=== PATIENT | male | born 1970 | race Caucasian/White ===

== ENCOUNTER 2024-04-13 20:39 | Emergency (ER) | payer MEDICARE, OTHER ==
[~2024-04-13] VITALS: Ht 170.2 cm; Wt 63.0 kg
[~2024-04-13 20:39] MED LIST: BUPR1TAB SL; CHLO25CA10 PO; FOLI1TAB27 PO; LEVO50TA67 PO; ONDA4TAB6 PO; PANT-47 PO; PHEN100C4 PO
[2024-04-13 21:18] LABS: BASOPHILS % (AUTO) 0.4 % (0-1); EOSINOPHILS % (AUTO) 0.3 % (0-6); HEMOGLOBIN 13.6 g/dl (14.0-17.9); LYMPHOCYTES # (AUTO) 0.5 X10'3 (1.1-4.8); LYMPHOCYTES % (AUTO) 6.7 % (21-51); MEAN CORPUSCULAR HEMOGLOBIN 30.3 PG (27.0-31.0); MEAN CORPUSCULAR VOLUME 89.1 FL (78-98); MEAN PLATELET VOLUME 8.7 FL (7.4-10.4); MONOCYTES # (AUTO) 0.4 X10'3 (0-0.9); NEUTROPHILS # (AUTO) 6.5 X10'3 (1.8-7.7); NEUTROPHILS % (AUTO) 87.6 % (42-75); PLATELET COUNT 198 X10'3 (140-440); RED BLOOD COUNT 4.49 X10'6 (4.70-6.10); WHITE BLOOD COUNT 7.4 X10'3 (4.5-11.0)
[2024-04-13 21:24] LABS: ALANINE AMINOTRANSFERASE 39 U/L (12-78); ALBUMIN 3.8 G/DL (3.4-5.0); ALBUMIN/GLOBULIN RATIO 1.5 (1.1-1.5); ALKALINE PHOSPHATASE 68 IU/L (46-116); ANION GAP 8 (8-16); ASPARTATE AMINO TRANSFERASE 26 U/L (10-37); BILIRUBIN,TOTAL 0.5 MG/DL (0.1-1.0); BLOOD UREA NITROGEN 25 MG/DL (7-18); BUN/CREATININE RATIO 25.5 (10.0-20.0); CALCIUM 10.4 MG/DL (8.5-10.1); CHLORIDE 102 MMOL/L (99-107); CREATININE 0.98 MG/DL (0.60-1.10); GLUCOSE 132 MG/DL (70-104); LIPASE 35 U/L (16-77); POTASSIUM 3.4 MMOL/L (3.5-5.1); SODIUM 142 MMOL/L (135-145); TOTAL CARBON DIOXIDE 32.2 MMOL/L (24-32); TOTAL PROTEIN 6.3 G/DL (6.4-8.2); eCRCL 76 ML/MIN; eGFR 79 ML/MIN
[2024-04-14 00:09] LABS: BILIRUBIN,URINE NEGATIVE (Neg); CLARITY,URINE SLIGHTLY CLOUDY (Clear); COLOR,URINE YELLOW (Yellow); GLUCOSE, URINE NEGATIVE (Neg); KETONES,URINE 40 mg/dl (Neg); LEUKOCYTE ESTERASE ,URINE NEGATIVE (Neg); NITRITES, URINE NEGATIVE (Neg); OCCULT BLOOD,URINE NEGATIVE (Neg); PROTEIN,URINE NEGATIVE (Neg); UROBILINOGEN,URINE 0.2 E.U/dL (0.2-1.0)
[2024-04-14 00:13] LABS: UA COLLECTION TYPE CLN CATCH MIDSTREAM
[2024-04-14 00:14] LABS: AMORPHOUS PHOSPHATES 2+; BACTERIA,URINE FEW /HPF (Neg); RBC,URINE NONE SEEN /HPF (0-2); SQUAMOUS EPITHELIAL CELL,UR FEW /LPF (FEW); WBC,URINE 0-4 /HPF (0-4)
[2024-04-14] MEDS: pantoprazole 40 MG vial IV ONE (01:34)
[2024-04-14] MEDS: normal saline 1000ml 1,000 ML IV ONE (01:34)
[2024-04-14] MEDS: ondansetron/PF 4mg/2ml inj IV ONE (01:35)
[2024-04-14] MEDS: famotidine/PF 10 mg/ml inj IV ONE (01:35)
[2024-04-14] MEDS: ketorolac trometh 15mg/ml vial 15 MG/ML ML IV ONE (01:35)
[2024-04-14] MEDS ORDERED: FAMO-129 PO (02:13)
[2024-04-14] MEDS ORDERED: ONDA-245 PO (02:13)
[2024-04-14] MEDS ORDERED: LIDO15SO9 PO (02:36)
[2024-04-14] MEDS: mag hydrox/Alum hydrox/simeth 30ml oral suspension PO ONE (02:49)
[2024-04-14] MEDS: LIDOcaine 2% Viscous 15ml cup MM ONE (02:49)
[2024-04-14 03:23] VITALS: BP 179/97; PULSE 75; RESP 18; TEMP 98.9; O2SAT 98
== END 2024-04-14 03:24 | disposition home or self-care (01) ==
LOC: ER 20:39
DX: K29.00 Acute gastritis without bleeding (principal); F10.10 Alcohol abuse, uncomplicated; Z79.899 Other long term (current) drug therapy; Y90.9 Presence of alcohol in blood, level not specified
CPT/HCPCS: 36415; 80053; 81001; 83690; 84484; 85025; 96361; 96374; 96375; 99284; J1885; J2405; J2470; J3490; J7030

== ENCOUNTER 2024-04-16 16:35 | Inpatient (IN) | payer OTHER ==
[~2024-04-16] VITALS: Ht 171.4 cm; Wt 62.0 kg
[~2024-04-16 16:35] MED LIST changes: +FAMO-129 PO; +LIDO15SO9 PO; +ONDA-245 PO
[2024-04-16 17:48] LABS: BASOPHILS % (AUTO) 0.3 % (0-1); EOSINOPHILS % (AUTO) 0.6 % (0-6); HEMATOCRIT 39.8 % (42.0-52.0); HEMOGLOBIN 13.5 g/dl (14.0-17.9); LYMPHOCYTES # (AUTO) 0.8 X10'3 (1.1-4.8); LYMPHOCYTES % (AUTO) 12.1 % (21-51); MEAN CORPUSCULAR HEMOGLOBIN 30.4 PG (27.0-31.0); MEAN CORPUSCULAR VOLUME 89.2 FL (78-98); MONOCYTES # (AUTO) 0.5 X10'3 (0-0.9); MONOCYTES % (AUTO) 8.1 % (2-12); NEUTROPHILS % (AUTO) 78.9 % (42-75); PLATELET COUNT 217 X10'3 (140-440); RED BLOOD COUNT 4.46 X10'6 (4.70-6.10); RED CELL DISTRIBUTION WIDTH 13.9 % (11.5-14.5); WHITE BLOOD COUNT 6.3 X10'3 (4.5-11.0)
[2024-04-16 18:08] LABS: ALANINE AMINOTRANSFERASE 42 U/L (12-78); ALBUMIN 3.6 G/DL (3.4-5.0); ALBUMIN/GLOBULIN RATIO 1.4 (1.1-1.5); ALKALINE PHOSPHATASE 64 IU/L (46-116); ANION GAP 8 (8-16); ASPARTATE AMINO TRANSFERASE 29 U/L (10-37); BILIRUBIN,TOTAL 0.4 MG/DL (0.1-1.0); BLOOD UREA NITROGEN 19 MG/DL (7-18); BUN/CREATININE RATIO 19.8 (10.0-20.0); CALCIUM 9.8 MG/DL (8.5-10.1); CHLORIDE 101 MMOL/L (99-107); CREATININE 0.96 MG/DL (0.60-1.10); GLUCOSE 117 MG/DL (70-104); LIPASE 42 U/L (16-77); POTASSIUM 3.5 MMOL/L (3.5-5.1); SODIUM 140 MMOL/L (135-145); TOTAL CARBON DIOXIDE 31.2 MMOL/L (24-32); TOTAL PROTEIN 6.2 G/DL (6.4-8.2); eCRCL 76 ML/MIN; eGFR 81 ML/MIN
[2024-04-16] MEDS ORDERED: LIDOcaine 2% Viscous 15ml cup MM ONE (19:25)
[2024-04-16] MEDS: mag hydrox/Alum hydrox/simeth 30ml oral suspension PO ONE (19:33)
[2024-04-16] MEDS: LIDOcaine 2% Viscous 15ml cup MM ONE (19:34)
[2024-04-16] MEDS: diatr meglu/diatrizoate 30ml oral sol.-(3 dose) bottle PO SCH (21:10)
[2024-04-16 21:28] LABS: BILIRUBIN,URINE NEGATIVE (Neg); CLARITY,URINE CLEAR (Clear); COLOR,URINE YELLOW (Yellow); GLUCOSE, URINE NEGATIVE (Neg); KETONES,URINE 15 mg/dl (Neg); LEUKOCYTE ESTERASE ,URINE NEGATIVE (Neg); NITRITES, URINE NEGATIVE (Neg); OCCULT BLOOD,URINE NEGATIVE (Neg); PROTEIN,URINE NEGATIVE (Neg); UA COLLECTION TYPE NON-SPECIFIED; UROBILINOGEN,URINE 0.2 E.U/dL (0.2-1.0)
[2024-04-16] MEDS ORDERED: OMEP20CA15 PO (22:48)
[2024-04-16] MEDS ORDERED: mag hydrox/Alum hydrox/simeth 30ml oral suspension PO PRN (23:00)
[2024-04-16] MEDS ORDERED: magnesium hydroxide 30ml (MOM) UD suspension PO PRN (23:00)
[2024-04-16] MEDS ORDERED: acetaminophen 325mg tablet PO PRN (23:00)
[2024-04-16] MEDS ORDERED: magnesium sulf-water 4G/100mL 100 ML IV PRN (23:00)
[2024-04-16] MEDS ORDERED: magnesium Cl slow-release 64mg tablet PO PRN (23:00)
[2024-04-16] MEDS ORDERED: magnesium sulf-water 2g/50mL 50 ML IV PRN (23:00)
[2024-04-16] MEDS ORDERED: potassium Cl 20 mEq SR tablet PO PRN ×2 (23:00)
[2024-04-16] MEDS ORDERED: ondansetron/PF 4mg/2ml inj IV PRN (23:00)
[2024-04-16 23:30] VITALS: BP 168/105; PULSE 78; RESP 19; TEMP 98.6; O2SAT 97
[2024-04-17] VITALS (19 sets, daily range): BP systolic 141–213; BP diastolic 89–115; PULSE 71–92; RESP 10–20; TEMP 97–98.3; O2SAT 95–99
[2024-04-17] MEDS: hydrALAZINE 20mg/ml inj. IV ONE (00:24)
[2024-04-17] MEDS: normal saline 1000ml 1,000 ML IV SCH (01:12)
[2024-04-17] MEDS: morphine 2 MG/ML inj. syringe IV ONE (01:12)
[2024-04-17] MEDS: diatr meglu/diatrizoate 30ml oral sol.-(3 dose) bottle PO SCH (01:49)
[2024-04-17 06:55] LABS: BASOPHILS % (AUTO) 0.3 % (0-1); EOSINOPHILS # (AUTO) 0.1 X10'3 (0-0.9); EOSINOPHILS % (AUTO) 1.7 % (0-6); HEMATOCRIT 33.3 % (42.0-52.0); HEMOGLOBIN 11.4 g/dl (14.0-17.9); LYMPHOCYTES # (AUTO) 0.7 X10'3 (1.1-4.8); LYMPHOCYTES % (AUTO) 14.9 % (21-51); MEAN CORPUSCULAR HEMOGLOBIN 30.7 PG (27.0-31.0); MEAN CORPUSCULAR HGB CONC 34.3 g/dL (33.0-36.5); MEAN CORPUSCULAR VOLUME 89.5 FL (78-98); MEAN PLATELET VOLUME 9.1 FL (7.4-10.4); MONOCYTES # (AUTO) 0.4 X10'3 (0-0.9); MONOCYTES % (AUTO) 8.8 % (2-12); NEUTROPHILS # (AUTO) 3.6 X10'3 (1.8-7.7); NEUTROPHILS % (AUTO) 74.3 % (42-75); PLATELET COUNT 158 X10'3 (140-440); RED BLOOD COUNT 3.72 X10'6 (4.70-6.10); RED CELL DISTRIBUTION WIDTH 14.2 % (11.5-14.5); WHITE BLOOD COUNT 4.8 X10'3 (4.5-11.0)
[2024-04-17 07:21] LABS: ALANINE AMINOTRANSFERASE 31 U/L (12-78); ALBUMIN 2.5 G/DL (3.4-5.0); ALBUMIN/GLOBULIN RATIO 1.1 (1.1-1.5); ALKALINE PHOSPHATASE 51 IU/L (46-116); ANION GAP 8 (8-16); ASPARTATE AMINO TRANSFERASE 25 U/L (10-37); BILIRUBIN,TOTAL 0.3 MG/DL (0.1-1.0); BLOOD UREA NITROGEN 16 MG/DL (7-18); BUN/CREATININE RATIO 24.2 (10.0-20.0); CALCIUM 8.2 MG/DL (8.5-10.1); CHLORIDE 105 MMOL/L (99-107); CREATININE 0.66 MG/DL (0.60-1.10); GLUCOSE 105 MG/DL (70-104); MAGNESIUM 2.1 MG/DL (1.5-2.4); POTASSIUM 3.3 MMOL/L (3.5-5.1); SODIUM 140 MMOL/L (135-145); TOTAL CARBON DIOXIDE 27.2 MMOL/L (24-32); TOTAL PROTEIN 4.8 G/DL (6.4-8.2); eCRCL 111 ML/MIN; eGFR > 90 ML/MIN
[2024-04-17] MEDS: heparin, porcine 5000 units/ml vial SQ SCH (07:56)
[2024-04-17] MEDS: docusate sod 100mg capsule PO SCH (07:58)
[2024-04-17] MEDS: K and/or MAG REPLACEMENT MC SCH (08:00)
[2024-04-17] MEDS: ketorolac trometh 15mg/ml vial 15 MG/ML ML IV ONE (12:20)
[2024-04-17] MEDS ORDERED: MIDAZolam 1 MG/ML 5ML VIAL ONE (14:08)
[2024-04-17] MEDS ORDERED: fentaNYL/PF 50MCG/1 ML 2ML syringe ONE (14:08)
[2024-04-17] MEDS ORDERED: LIDOcaine 2% Viscous 15ml cup ONE (14:08)
[2024-04-17] MEDS ORDERED: simethicone 40mg/0.6ml oral drops 30ml ONE (14:18)
[2024-04-17] MEDS ORDERED: buprenorphine/naloxone 2-0.5mg sublingual tablet SL SCH (16:32)
[2024-04-17] MEDS ORDERED: iohexol 300mg/ml 100ml inj. ONE ×2 (17:09→18:09)
[2024-04-17] MEDS ORDERED: TYPE IN GENERIC & BRAND NAME OF PATIENT MED STRENGTH & FORM SL SCH ×2 (17:13→17:14)
[2024-04-17] MEDS: buprenorphine/naloxone 8mg/2mg SL tablet SL SCH (17:31)
[2024-04-17] MEDS: pantoprazole 40MG/NS 100ML BAG 100 ML IV SCH (19:56)
[2024-04-17] MEDS: potassium Cl 40MEQ/1/2NS 520ml 520 ML IV PRN (21:37)
[2024-04-18] VITALS (23 sets, daily range): BP systolic 114–162; BP diastolic 64–87; PULSE 63–86; RESP 9–18; TEMP 97.5–98.4; O2SAT 95–100
[2024-04-18 06:30] LABS: BASOPHILS % (AUTO) 0.3 % (0-1); EOSINOPHILS # (AUTO) 0.2 X10'3 (0-0.9); EOSINOPHILS % (AUTO) 3.2 % (0-6); HEMATOCRIT 32.4 % (42.0-52.0); HEMOGLOBIN 11.1 g/dl (14.0-17.9); LYMPHOCYTES # (AUTO) 0.6 X10'3 (1.1-4.8); LYMPHOCYTES % (AUTO) 11.8 % (21-51); MEAN CORPUSCULAR HEMOGLOBIN 30.7 PG (27.0-31.0); MEAN CORPUSCULAR HGB CONC 34.4 g/dL (33.0-36.5); MEAN CORPUSCULAR VOLUME 89.1 FL (78-98); MEAN PLATELET VOLUME 8.9 FL (7.4-10.4); MONOCYTES # (AUTO) 0.4 X10'3 (0-0.9); MONOCYTES % (AUTO) 7.7 % (2-12); NEUTROPHILS # (AUTO) 3.8 X10'3 (1.8-7.7); PLATELET COUNT 145 X10'3 (140-440); RED BLOOD COUNT 3.63 X10'6 (4.70-6.10); RED CELL DISTRIBUTION WIDTH 14.2 % (11.5-14.5); WHITE BLOOD COUNT 4.9 X10'3 (4.5-11.0)
[2024-04-18 06:56] LABS: ALANINE AMINOTRANSFERASE 33 U/L (12-78); ALBUMIN 2.5 G/DL (3.4-5.0); ALBUMIN/GLOBULIN RATIO 1.1 (1.1-1.5); ALKALINE PHOSPHATASE 56 IU/L (46-116); ANION GAP 11 (8-16); ASPARTATE AMINO TRANSFERASE 24 U/L (10-37); BILIRUBIN,TOTAL 0.5 MG/DL (0.1-1.0); BLOOD UREA NITROGEN 11 MG/DL (7-18); BUN/CREATININE RATIO 20.4 (10.0-20.0); CALCIUM 7.8 MG/DL (8.5-10.1); CHLORIDE 107 MMOL/L (99-107); CREATININE 0.54 MG/DL (0.60-1.10); GLUCOSE 71 MG/DL (70-104); SODIUM 139 MMOL/L (135-145); TOTAL CARBON DIOXIDE 21.3 MMOL/L (24-32); TOTAL PROTEIN 4.7 G/DL (6.4-8.2); eCRCL 136 ML/MIN; eGFR > 90 ML/MIN
[2024-04-18] MEDS ORDERED: non-formulary drug (Omeprazole 1 CAP) PO SCH (08:00)
[2024-04-18] MEDS ORDERED: LIDOcaine 2% Viscous 15ml cup ONE (13:32)
[2024-04-18] MEDS ORDERED: MIDAZolam 1 MG/ML 5ML VIAL ONE (13:46)
[2024-04-18] MEDS ORDERED: fentaNYL/PF 50MCG/1 ML 2ML syringe ONE (13:46)
[2024-04-18] MEDS ORDERED: simethicone 40mg/0.6ml oral drops 30ml ONE (14:45)
[2024-04-18] MEDS: methylnaltrexone br 12mg/0.6ml inj***SubQ only SQ SCH (15:53)
[2024-04-19 06:00] VITALS: BP 131/70; PULSE 61; RESP 16; TEMP 97.7; O2SAT 98
[2024-04-19 06:16] LABS: BASOPHILS % (AUTO) 0.7 % (0-1); EOSINOPHILS # (AUTO) 0.1 X10'3 (0-0.9); EOSINOPHILS % (AUTO) 3.4 % (0-6); HEMATOCRIT 30.5 % (42.0-52.0); HEMOGLOBIN 10.5 g/dl (14.0-17.9); LYMPHOCYTES # (AUTO) 0.6 X10'3 (1.1-4.8); LYMPHOCYTES % (AUTO) 15.5 % (21-51); MEAN CORPUSCULAR HEMOGLOBIN 30.8 PG (27.0-31.0); MEAN CORPUSCULAR HGB CONC 34.4 g/dL (33.0-36.5); MEAN CORPUSCULAR VOLUME 89.5 FL (78-98); MONOCYTES # (AUTO) 0.3 X10'3 (0-0.9); MONOCYTES % (AUTO) 6.4 % (2-12); PLATELET COUNT 155 X10'3 (140-440); RED BLOOD COUNT 3.41 X10'6 (4.70-6.10); RED CELL DISTRIBUTION WIDTH 14.1 % (11.5-14.5); WHITE BLOOD COUNT 4.1 X10'3 (4.5-11.0)
[2024-04-19 06:26] LABS: ALANINE AMINOTRANSFERASE 31 U/L (12-78); ALBUMIN 2.4 G/DL (3.4-5.0); ALBUMIN/GLOBULIN RATIO 1.1 (1.1-1.5); ALKALINE PHOSPHATASE 52 IU/L (46-116); ANION GAP 11 (8-16); ASPARTATE AMINO TRANSFERASE 16 U/L (10-37); BILIRUBIN,TOTAL 0.4 MG/DL (0.1-1.0); BLOOD UREA NITROGEN 15 MG/DL (7-18); BUN/CREATININE RATIO 23.4 (10.0-20.0); CALCIUM 7.8 MG/DL (8.5-10.1); CHLORIDE 107 MMOL/L (99-107); CREATININE 0.64 MG/DL (0.60-1.10); GLUCOSE 51 MG/DL (70-104); MAGNESIUM 2.1 MG/DL (1.5-2.4); POTASSIUM 4.1 MMOL/L (3.5-5.1); SODIUM 137 MMOL/L (135-145); TOTAL CARBON DIOXIDE 18.7 MMOL/L (24-32); TOTAL PROTEIN 4.5 G/DL (6.4-8.2); eCRCL 114 ML/MIN; eGFR > 90 ML/MIN
[2024-04-19 08:00] VITALS: RESP 16; O2SAT 98
[2024-04-19] MEDS ORDERED: SENN-36 PO (09:50)
[2024-04-19] MEDS ORDERED: POLY17PO10 PO (09:50)
[2024-04-19] MEDS ORDERED: PANT40TA54 PO (09:50)
[2024-04-19 10:00] VITALS: BP 150/81; PULSE 68; RESP 20; TEMP 98.3; O2SAT 98
[2024-04-19] MEDS ORDERED: FERR324T4 PO (17:32)
== END 2024-04-19 16:04 | disposition home or self-care (01) | DRG 392 ==
LOC: ER 16:36 → ED HOLD 20:50 → SUR 3N 23:00
PROVIDERS: ADMIT Internal Medicine Critical Care Medicine; ATTEND Internal Medicine
PROC: 0DJ08ZZ Inspection of Upper Intestinal Tract, Via Natural or Artificial Opening Endoscopic (ICD-10-PCS; principal; 2024-04-17)
PROC: 0DB68ZX Excision of Stomach, Via Natural or Artificial Opening Endoscopic, Diagnostic (ICD-10-PCS; 2024-04-17)
PROC: 0DB38ZX Excision of Lower Esophagus, Via Natural or Artificial Opening Endoscopic, Diagnostic (ICD-10-PCS; 2024-04-17)
PROC: 0D768ZZ Dilation of Stomach, Via Natural or Artificial Opening Endoscopic (ICD-10-PCS; 2024-04-17)
DX: K29.00 Acute gastritis without bleeding (principal); K31.1 Adult hypertrophic pyloric stenosis; F11.20 Opioid dependence, uncomplicated; I87.8 Other specified disorders of veins; R73.9 Hyperglycemia, unspecified; K56.41 Fecal impaction; K21.00 Gastro-esophageal reflux disease with esophagitis, without bleeding; D64.9 Anemia, unspecified; Z79.899 Other long term (current) drug therapy
CPT/HCPCS: 36415; 43235; 43249; 71045; 74018; 74176; 74177; 80053; 81003; 83690; 83735; 85025; 87081; 99152; 99285; A4620; C1726; G0378; J0360; J1885; J2212; J2250; J2270; J2470; J3010; J3480; J7030; J7040; Q9963; Q9967